=== PATIENT | male | born 1985 | race Two or more races ===

== ENCOUNTER 2023-04-14 05:30 | Day surgery (SDC) | payer OTHER ==
[~2023-04-14] VITALS: Ht 167.6 cm; Wt 79.4 kg
[~2023-04-14 05:30] MED LIST: LIPITOR40 MG PO; PROTONIX20 MG PO; ZESTRIL10 M1 PO
[2023-04-14] MEDS ORDERED: OXYC1TAB9 PO (08:55)
== END 2023-04-14 12:10 | disposition home or self-care (01) ==
LOC: CIR.AMB 05:30
PROVIDERS: ATTEND Surgery
DX: K64.2 Third degree hemorrhoids (principal); K62.5 Hemorrhage of anus and rectum; K64.8 Other hemorrhoids; K62.89 Other specified diseases of anus and rectum; K64.5 Perianal venous thrombosis; Z20.822 Contact with and (suspected) exposure to COVID-19; I10 Essential (primary) hypertension